=== PATIENT | female | born 1965 | race Caucasian/White ===

== ENCOUNTER 2017-06-09 01:46 | Emergency (ER) | payer BC ==
[~2017-06-09] VITALS: Ht 165.1 cm; Wt 77.1 kg
--- NOTE | ~2017-06-09 | CR142 ---
[facility] A Service of [facility] & [facility] RADIOLOGY TEXT RESULTS PATIENT: YONG DIAZ LOCATION: [facility] : 65 UNIT #: [id number] AGE: [address]: KYE PRESTON APRN SEX: F ORDER DR: [id number] [facility] [place] [address] [place], [place] [address] [id number] E MR#: [id number] Acc #: [id number] NAME: YONG DIAZ : 1965 SEX: F STUDY DATE/TIME: 06/09/2017 03:09 UNIT: [facility] ROOM: STUDY DESCRIPTION: CR Hand Min 3 Views Rt Attending Physician: Kye Preston Aprn Ordering Physician: Ed Doctor [id number] [facility] Primary Care Physician: Primary Care Physician No MEDICAL IMAGING REPORT This report is preliminary unless electronic signature is present EXAM Right hand 06/09 at 03:09 INDICATION Right hand injury after punching a brick wall today. FINDINGS Three views of the right hand are compared with right fourth digit films dated 11/02/2013. Patient is status post fixation of the fourth proximal phalanx fracture with 2 screws. The patient is also status post ORIF of the distal radius with a plate and screws. There is an old nonunited ulnar styloid fracture. There is an acute fracture of the fifth metacarpal neck with volar angulation. No other acute fractures are identified. IMPRESSION Acute fracture of the fifth metacarpal neck with volar angulation. No other acute fractures. Dictated by... Carlos Wong Jr., M.D. THIS IS AN ELECTRONICALLY VERIFIED REPORT Carlos Wong Jr., M.D. at 06/10/2017 12:52 AM ABDOUL/wil TD: 06/09/2017 09:53 JOB #: [id number] MEDICAL IMAGING REPORT Page 1 of 1 COPY
[~2017-06-09 01:46] MED LIST: VOLTAREN75 MG PO
== END 2017-06-09 05:15 | disposition home or self-care (01) ==
LOC: CED 01:46
DX: S62.336A Displaced fracture of neck of fifth metacarpal bone, right hand, initial encounter for closed fracture (principal); J44.9 Chronic obstructive pulmonary disease, unspecified; W22.01XA Walked into wall, initial encounter
CPT/HCPCS: 29125; 73130; 99283